=== PATIENT | male | born 1985 | race Caucasian/White ===

== ENCOUNTER 2020-09-22 16:38 | Emergency (ER) | payer OTHER ==
[2020-09-22 16:53] VITALS: BP 137/87
[2020-09-22] MEDS ORDERED: PROPARACAINE 0.5% OPHTH DROPS 15 ML EACHEYE STA (17:04)
[2020-09-22] MEDS ORDERED: ERYTHROMYCIN OPHTH OINT 1 GM TUBE RIGHTEYE STA (17:17)
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
== END 2020-09-22 17:30 | disposition home or self-care (01) ==
LOC: ED 16:38
DX: H10.31 Unspecified acute conjunctivitis, right eye (principal)
CPT/HCPCS: 99282; 99283; J3490

== ENCOUNTER 2021-12-25 14:03 | Outpatient (CLI) | payer OTHER ==
[2021-12-25 14:58] VITALS: BP 138/91
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
== END 2021-12-25 14:04 | disposition home or self-care (01) ==
LOC: SC 14:03
PROVIDERS: ATTEND Nurse Practitioner Family
DX: R06.83 Snoring (principal); G47.8 Other sleep disorders; R06.81 Apnea, not elsewhere classified; G47.10 Hypersomnia, unspecified; F32.A Depression, unspecified; E66.3 Overweight; Z68.29 Body mass index [BMI] 29.0-29.9, adult; Z87.891 Personal history of nicotine dependence
CPT/HCPCS: 99203; 99212

== ENCOUNTER 2022-02-25 20:31 | Outpatient (CLI) | payer OTHER | END 2022-02-25 20:32 | disposition home or self-care (01) | LOC: SC 20:31 | PROVIDERS: ATTEND Nurse Practitioner Family | DX: F32.A Depression, unspecified (principal); G47.33 Obstructive sleep apnea (adult) (pediatric) | CPT/HCPCS: 95810 ==

== ENCOUNTER 2022-03-18 09:33 | Outpatient (CLI) | payer OTHER | END 2022-03-18 09:34 | disposition home or self-care (01) | LOC: RT 09:33 | PROVIDERS: ATTEND Student in an Organized Health Care Education/Training Program | DX: R06.09 Other forms of dyspnea (principal); Z86.16 Personal history of COVID-19 | CPT/HCPCS: 94010; 94727; 94729 ==